=== PATIENT | female | born 1995 | race Caucasian/White ===

== ENCOUNTER 2016-06-30 14:47 | Emergency (ER) | payer MEDICAID ==
[~2016-06-30] VITALS: Ht 149.9 cm; Wt 67.3 kg
[~2016-06-30 14:47] MED LIST: ABILIFY5 MG PO; ADDERALL5 MG PO; CEFTIN 250250 MG/TAB PO; DESYREL 50MG50 MG PO; IMPLANON68 MG ID; LEVAQUIN 5500 MG/TA1 PO; MINIPRESS 5M5 MG/CAP PO; NO HOME MEDICATIONS; NORCO 325 MG-51 TAB PO; PERIACTIN 4MG TA4 MG PO; PROZAC 20MG20 MG PO; RISPERDAL 0.5M0.5 MG PO; RISPERDAL2 MG PO; VISTARIL50 MG PO; WELLBUTRIN SR100 M1 PO; WELLBUTRIN XL300 M1 PO; ZOFRAN 4MG T4 MG/TAB PO; ZOLOFT 50MG50 MG PO; ZYPREXA10 MG PO
[2016-06-30 14:48] VITALS: TEMP 97
[2016-06-30 15:32] LABS: BASO % 0.4 % (0.0-2.0); EOS # 0.1 (0.0-0.7); EOS % 1.9 % (0-4.0); GRAN # 3.9 (1.4-6.5); GRAN % 55.2 % (42.2-75.2); HEMATOCRIT 38.1 % (35.0-45.0); HEMOGLOBIN 12.7 g/dl (12.0-15.0); LYMPH # 2.5 (1.2-3.4); LYMPH % 35.5 % (20.0-51.0); MEAN CELL VOLUME 90 fl (80.0-95.0); MEAN CORPUSCULAR HEMOGLOBIN 30 pg (26.0-32.0); MEAN CORPUSCULAR HGB CONC 33 g/dl (33.0-37.0); MEAN PLATELET VOLUME 10.5 fl (7.4-10.4); MONO # 0.5 (0.1-0.6); PLATELET COUNT 294 K/mm3 (130-400); RED BLOOD COUNT 4.22 M/mm3 (4.10-5.30); REDCELL DISTRIBUTION WIDTH-CV 12.8 % (11.5-14.5)
[2016-06-30 15:41] LABS: ADJUSTED CALCIUM 9.2 mg/dL (8.4-10.2); ALANINE AMINOTRANSFERASE 22 U/L (9-52); ALBUMIN 3.8 gm/dL (3.5-5.0); ALKALINE PHOSPHATASE 69 U/L (50-136); ANION GAP 8 mmol/L (7-16); BILIRUBIN,TOTAL 0.5 mg/dL (0.0-1.0); BLOOD UREA NITROGEN 8 mg/dL (7-17); CARBON DIOXIDE 27 mmol/L (22-30); CHLORIDE 106 mmol/L (98-107); CREATININE, serum 0.74 mg/dL (0.52-1.25); GLUCOSE 104 mg/dL (74-106); LIPASE 190 U/L (23-300); POTASSIUM 3.9 mmol/L (3.4-5.0); SODIUM 141 mmol/L (137-145)
[2016-06-30 15:43] LABS: C-REACTIVE PROTEIN < 0.5 mg/dL (0.0-0.9)
[2016-06-30 17:18] LABS: PH 6 (5-8); URINE APPEARANCE Hazy; URINE BACTERIA Rare /hpf; URINE BILIRUBIN Negative (NEGATIVE); URINE BLOOD Negative (NEGATIVE); URINE COLOR Yellow; URINE GLUCOSE Negative (NEGATIVE); URINE KETONE Negative (NEGATIVE); URINE UROBILINOGEN Negative (NEGATIVE)
[2016-06-30] MEDS ORDERED: DOXYCYCLINE 10100 MG PO (18:17)
[2016-06-30] MEDS ORDERED: PHENERGAN 25 TA25 MG PO (18:17)
[2016-06-30 18:28] VITALS: BP 116/85; PULSE 75
[2016-07-03] MEDS ORDERED: AMOXICILLIN 50500 MG PO (04:30)
== END 2016-06-30 18:29 | disposition home or self-care (01) ==
LOC: COL.ER 14:47
PROVIDERS: Emergency Medicine
DX: R10.84 Generalized abdominal pain (principal); L03.116 Cellulitis of left lower limb; R19.7 Diarrhea, unspecified; R11.2 Nausea with vomiting, unspecified
CPT/HCPCS: J1170; J1885; J2405; J7030

== ENCOUNTER 2016-09-13 05:00 | Emergency (ER) | payer MEDICAID ==
[~2016-09-13] VITALS: Ht 149.9 cm; Wt 57.7 kg
[~2016-09-13 05:00] MED LIST changes: +AMOXICILLIN 50500 MG PO; +DOXYCYCLINE 10100 MG PO; +PHENERGAN 25 TA25 MG PO
[2016-09-13 05:06] VITALS: TEMP 97.8
[2016-09-13 05:55] LABS: BASO # 0.1 (0.0-0.2); BASO % 0.6 % (0.0-2.0); EOS # 0.2 (0.0-0.7); EOS % 1.8 % (0-4.0); GRAN # 3.5 (1.4-6.5); GRAN % 41.6 % (42.2-75.2); HEMOGLOBIN 12.9 g/dl (12.0-15.0); LYMPH # 3.7 (1.2-3.4); MEAN CELL VOLUME 88 fl (80.0-95.0); MEAN CORPUSCULAR HEMOGLOBIN 31 pg (26.0-32.0); MEAN CORPUSCULAR HGB CONC 35 g/dl (33.0-37.0); MEAN PLATELET VOLUME 10.9 fl (7.4-10.4); MONO % 11.9 % (1.7-9.3); PLATELET COUNT 284 K/mm3 (130-400); RED BLOOD COUNT 4.19 M/mm3 (4.10-5.30); REDCELL DISTRIBUTION WIDTH-CV 13.2 % (11.5-14.5); WHITE BLOOD COUNT 8.3 K/mm3 (4.8-10.8)
[2016-09-13 06:09] LABS: ALBUMIN 4.5 gm/dL (3.5-5.0); BILIRUBIN,TOTAL 0.5 mg/dL (0.0-1.0); CALCIUM 9.4 mg/dL (8.4-10.2); CREATININE, serum 0.71 mg/dL (0.52-1.25); POTASSIUM 3.6 mmol/L (3.4-5.0); TOTAL PROTEIN 7.8 gm/dL (6.4-8.2)
[2016-09-13] MEDS ORDERED: ULTRAM 50MG TAB50 MG PO (06:35)
[2016-09-13] MEDS ORDERED: ZOFRAN8 MG PO (06:35)
[2016-09-13] MEDS ORDERED: MACROBID 1100 MG/CAP PO (06:46)
[2016-09-13 06:59] VITALS: BP 126/92; PULSE 90
[2016-09-13 07:10] LABS: PH 6 (5-8); SQUAMOUS EPITHELIAL 0-2 /hpf; URINE APPEARANCE Hazy; URINE BACTERIA Rare /hpf; URINE BILIRUBIN Negative (NEGATIVE); URINE BLOOD Negative (NEGATIVE); URINE COLOR Yellow; URINE GLUCOSE Negative (NEGATIVE); URINE KETONE Negative (NEGATIVE); URINE UROBILINOGEN Negative (NEGATIVE); URINE WBC 20-50 /hpf
== END 2016-09-13 07:21 | disposition home or self-care (01) ==
LOC: COL.ER 05:00
PROVIDERS: Emergency Medicine
DX: N39.0 Urinary tract infection, site not specified (principal); F32.9 Major depressive disorder, single episode, unspecified; F20.9 Schizophrenia, unspecified; F41.9 Anxiety disorder, unspecified
CPT/HCPCS: J1170; J1885; J2405; J2765; J7030

== ENCOUNTER 2017-01-23 12:26 | Emergency (ER) | payer MEDICAID ==
[~2017-01-23] VITALS: Ht 149.9 cm; Wt 59.1 kg
[~2017-01-23 12:26] MED LIST changes: +MACROBID 1100 MG/CAP PO; +ULTRAM 50MG TAB50 MG PO; +ZOFRAN8 MG PO
[2017-01-23 12:38] VITALS: BP 122/73; PULSE 99; TEMP 97.8
== END 2017-01-23 14:49 | disposition left against medical advice (07) ==
LOC: COL.ER 12:26
DX: M25.552 Pain in left hip (principal); M25.551 Pain in right hip; R10.12 Left upper quadrant pain

== ENCOUNTER → 2017-02-26 | Outpatient (CLI) | payer MEDICAID ==
[2017-02-26 21:30] VITALS: BP 127/76; PULSE 95; TEMP 97.7
[2017-02-26 22:07] LABS: AMPHETAMINE URINE POSITIVE; BARBITURATES URINE NEGATIVE; BENZODIAZEPINES URINE NEGATIVE; BUPRENORPHINE URINE NEGATIVE; METHADONE URINE NEGATIVE; OPIATES URINE NEGATIVE; OXYCODONE URINE NEGATIVE; PHENCYCLIDINE URINE NEGATIVE; PROPOXYPHENE URINE NEGATIVE; THC CANNABINOIDS URINE NEGATIVE; TRICYCLIC ANTIDEPRESS URINE NEGATIVE
== END ==
LOC: LDRO 21:01
PROVIDERS: Obstetrics & Gynecology
DX: O99.612 Diseases of the digestive system complicating pregnancy, second trimester (principal); Z3A.26 26 weeks gestation of pregnancy

== ENCOUNTER 2017-04-28 12:59 | Emergency (ER) | payer MEDICAID ==
[~2017-04-28] VITALS: Ht 149.9 cm; Wt 58.2 kg
[2017-04-28 13:04] VITALS: BP 120/69; TEMP 98
[2017-04-28 14:34] LABS: BASO % 0.3 % (0.0-2.0); EOS # 0.1 (0.0-0.7); EOS % 0.8 % (0-4.0); GRAN # 6.6 (1.4-6.5); GRAN % 83.7 % (42.2-75.2); HEMATOCRIT 39.6 % (37.0-47.0); HEMOGLOBIN 13.3 g/dl (12.5-16.0); LYMPH # 0.8 (1.2-3.4); LYMPH % 9.8 % (20.0-51.0); MEAN CELL VOLUME 91 fl (80.0-100.0); MEAN CORPUSCULAR HEMOGLOBIN 31 pg (27.0-31.0); MEAN CORPUSCULAR HGB CONC 34 g/dl (33.0-37.0); MEAN PLATELET VOLUME 10.5 fl (7.4-10.4); MONO # 0.4 (0.1-0.6); MONO % 5.3 % (1.7-9.3); PLATELET COUNT 261 K/mm3 (130-400); RED BLOOD COUNT 4.34 M/mm3 (4.10-5.30); WHITE BLOOD COUNT 7.9 K/mm3 (4.8-10.8)
[2017-04-28 14:40] LABS: COLLECTION METHOD CLEAN CATCH
[2017-04-28 14:43] LABS: ADJUSTED CALCIUM 8.8 mg/dL (8.4-10.2); ALBUMIN 4.5 gm/dL (3.5-5.0); BILIRUBIN,TOTAL 0.8 mg/dL (0.0-1.0); C-REACTIVE PROTEIN 1.7 mg/dL (0.0-0.9); CALCIUM 9.2 mg/dL (8.4-10.2); CREATININE, serum 0.67 mg/dL (0.52-1.25); TOTAL PROTEIN 7.6 gm/dL (6.4-8.2)
[2017-04-28 14:50] LABS: MUCOUS Present /lpf; PH 6 (5-8); URINE APPEARANCE Clear; URINE BACTERIA Rare /hpf; URINE BILIRUBIN Negative (NEGATIVE); URINE BLOOD Negative (NEGATIVE); URINE COLOR Yellow; URINE GLUCOSE Negative (NEGATIVE); URINE KETONE Negative (NEGATIVE); URINE LEUKOCYTE ESTERASE Negative (NEGATIVE); URINE PROTEIN(semi-quant) Negative (NEGATIVE); URINE UROBILINOGEN Negative (NEGATIVE)
[2017-04-28] MEDS ORDERED: ZOFRAN 4MG T4 MG/TAB PO (17:04)
[2017-04-28 17:40] VITALS: PULSE 68
== END 2017-04-28 17:41 | disposition home or self-care (01) ==
LOC: COL.ER 12:59
PROVIDERS: Physician Assistant
DX: R11.10 Vomiting, unspecified (principal); F31.9 Bipolar disorder, unspecified; F41.9 Anxiety disorder, unspecified; F17.210 Nicotine dependence, cigarettes, uncomplicated; Z91.410 Personal history of adult physical and sexual abuse; Z87.440 Personal history of urinary (tract) infections; Z87.442 Personal history of urinary calculi
CPT/HCPCS: J1885; J2405; J7030; Q9967

== ENCOUNTER 2017-06-14 18:38 | Emergency (ER) | payer MEDICAID ==
[~2017-06-14] VITALS: Ht 165.1 cm; Wt 54.5 kg
[2017-06-14 18:46] VITALS: TEMP 98.6
[2017-06-14 19:05] LABS: BASO % 0.5 % (0.0-2.0); EOS # 0.1 (0.0-0.7); EOS % 2.4 % (0-4.0); GRAN # 2.5 (1.4-6.5); GRAN % 42.4 % (42.2-75.2); LYMPH # 2.4 (1.2-3.4); LYMPH % 40.5 % (20.0-51.0); MEAN CELL VOLUME 90 fl (80.0-100.0); MEAN CORPUSCULAR HGB CONC 34 g/dl (33.0-37.0); MEAN PLATELET VOLUME 10.5 fl (7.4-10.4); MONO # 0.8 (0.1-0.6); PLATELET COUNT 293 K/mm3 (130-400); RED BLOOD COUNT 3.89 M/mm3 (4.10-5.30); REDCELL DISTRIBUTION WIDTH-CV 13.2 % (11.5-14.5)
[2017-06-14 19:11] LABS: HEMATOCRIT 34.9 % (37.0-47.0); HEMOGLOBIN 11.9 g/dl (12.5-16.0); MEAN CORPUSCULAR HEMOGLOBIN 31 pg (27.0-31.0)
[2017-06-14 19:18] LABS: ALANINE AMINOTRANSFERASE 25 U/L (9-52); ALBUMIN 4.1 gm/dL (3.5-5.0); ALKALINE PHOSPHATASE 62 U/L (50-136); ANION GAP 8 mmol/L (7-16); AST,SGOT 33 U/L (15-37); BILIRUBIN,TOTAL 0.3 mg/dL (0.0-1.0); BLOOD UREA NITROGEN 15 mg/dL (7-17); CALCIUM 9.2 mg/dL (8.4-10.2); CARBON DIOXIDE 23 mmol/L (22-30); CHLORIDE 106 mmol/L (98-107); CREATININE, serum 0.64 mg/dL (0.52-1.25); GLUCOSE 115 mg/dL (74-106); POTASSIUM 3.9 mmol/L (3.4-5.0); SODIUM 138 mmol/L (137-145); TOTAL PROTEIN 7.2 gm/dL (6.4-8.2)
[2017-06-14 19:19] LABS: ALCOHOL(ethanol),MEDICAL < 10 mg/dL
[2017-06-14 19:34] LABS: PROLACTIN 35.2 ng/mL (3.0-18.6)
[2017-06-14 19:36] LABS: COLLECTION METHOD CLEAN CATCH
[2017-06-14 19:43] LABS: MUCOUS Present /lpf; PH 6 (5-8); URINE APPEARANCE Hazy; URINE BACTERIA Many /hpf; URINE BILIRUBIN Negative (NEGATIVE); URINE BLOOD 2+ (NEGATIVE); URINE COLOR Yellow; URINE GLUCOSE Negative (NEGATIVE); URINE KETONE Negative (NEGATIVE); URINE LEUKOCYTE ESTERASE Trace (NEGATIVE); URINE NITRATE Positive (NEGATIVE); URINE PROTEIN(semi-quant) Negative (NEGATIVE)
[2017-06-14 19:51] LABS: TRICYCLIC ANTIDEPRESS URINE NEGATIVE
[2017-06-14] MEDS ORDERED: CEPHALEXIN500 M1 PO (19:55)
[2017-06-14] MEDS ORDERED: IBU400 MG PO (19:56)
[2017-06-14 20:44] VITALS: BP 129/80; PULSE 81
== END 2017-06-14 20:44 | disposition home or self-care (01) ==
LOC: COL.ER 18:38
PROVIDERS: Emergency Medicine
DX: N39.0 Urinary tract infection, site not specified (principal); F15.10 Other stimulant abuse, uncomplicated; R56.9 Unspecified convulsions; F41.9 Anxiety disorder, unspecified; F32.9 Major depressive disorder, single episode, unspecified
CPT/HCPCS: J0696; J1885; J2405

== ENCOUNTER 2017-07-18 07:46 | Emergency (ER) | payer SELFPAY ==
[~2017-07-18] VITALS: Ht 160 cm; Wt 54.5 kg
[~2017-07-18 07:46] MED LIST changes: +CEPHALEXIN500 M1 PO; +IBU400 MG PO
[2017-07-18 07:49] VITALS: TEMP 96.8
[2017-07-18 08:07] LABS: BASO % 0.5 % (0.0-2.0); EOS # 0.2 (0.0-0.7); EOS % 2.4 % (0-4.0); GRAN # 3.5 (1.4-6.5); GRAN % 44.4 % (42.2-75.2); HEMATOCRIT 37.4 % (37.0-47.0); HEMOGLOBIN 12.8 g/dl (12.5-16.0); LYMPH # 3.3 (1.2-3.4); LYMPH % 41.1 % (20.0-51.0); MEAN CELL VOLUME 88 fl (80.0-100.0); MEAN CORPUSCULAR HEMOGLOBIN 30 pg (27.0-31.0); MEAN CORPUSCULAR HGB CONC 34 g/dl (33.0-37.0); MEAN PLATELET VOLUME 9.9 fl (7.4-10.4); MONO # 0.9 (0.1-0.6); MONO % 11.5 % (1.7-9.3); PLATELET COUNT 326 K/mm3 (130-400); RED BLOOD COUNT 4.23 M/mm3 (4.10-5.30)
[2017-07-18 08:21] LABS: ALANINE AMINOTRANSFERASE 23 U/L (9-52); ALBUMIN 4.4 gm/dL (3.5-5.0); ALKALINE PHOSPHATASE 62 U/L (50-136); ANION GAP 13 mmol/L (7-16); AST,SGOT 27 U/L (15-37); BILIRUBIN,TOTAL 0.3 mg/dL (0.0-1.0); BLOOD UREA NITROGEN 11 mg/dL (7-17); CARBON DIOXIDE 25 mmol/L (22-30); CHLORIDE 105 mmol/L (98-107); CREATININE, serum 0.67 mg/dL (0.52-1.25); GLUCOSE 110 mg/dL (74-106); POTASSIUM 3.8 mmol/L (3.4-5.0); SODIUM 143 mmol/L (137-145); TOTAL PROTEIN 7.6 gm/dL (6.4-8.2)
[2017-07-18 08:23] LABS: COLLECTION METHOD CLEAN CATCH
[2017-07-18 08:24] LABS: C-REACTIVE PROTEIN < 0.5 mg/dL (0.0-0.9)
[2017-07-18 08:31] LABS: MUCOUS Present /lpf; PH 7 (5-8); URINE APPEARANCE Hazy; URINE BACTERIA Rare /hpf; URINE BILIRUBIN Negative (NEGATIVE); URINE BLOOD 1+ (NEGATIVE); URINE COLOR Yellow; URINE GLUCOSE Negative (NEGATIVE); URINE KETONE Negative (NEGATIVE); URINE LEUKOCYTE ESTERASE Trace (NEGATIVE); URINE NITRATE Positive (NEGATIVE); URINE PROTEIN(semi-quant) Negative (NEGATIVE); URINE UROBILINOGEN Negative (NEGATIVE)
[2017-07-18 08:35] LABS: PROLACTIN 37.3 ng/mL (3.0-18.6)
[2017-07-18 09:02] LABS: TRICYCLIC ANTIDEPRESS URINE NEGATIVE
[2017-07-18] MEDS ORDERED: BACTRIM DS 8001 TAB PO (10:08)
[2017-07-18 10:40] VITALS: BP 114/86; PULSE 86
== END 2017-07-18 10:41 | disposition home or self-care (01) ==
LOC: COL.ER 07:46
PROVIDERS: Nurse Practitioner
DX: F15.10 Other stimulant abuse, uncomplicated (principal); N39.0 Urinary tract infection, site not specified; F31.9 Bipolar disorder, unspecified; F41.9 Anxiety disorder, unspecified; F43.10 Post-traumatic stress disorder, unspecified; F17.210 Nicotine dependence, cigarettes, uncomplicated
CPT/HCPCS: J2060

== ENCOUNTER 2018-06-19 20:44 | Emergency (ER) | payer SELFPAY ==
[~2018-06-19] VITALS: Ht 149.9 cm; Wt 59.1 kg
[~2018-06-19 20:44] MED LIST changes: +BACTRIM DS 8001 TAB PO
[2018-06-19 20:45] VITALS: TEMP 98.1
[2018-06-19] MEDS ORDERED: MINIPRESS 1M1 MG/CAP (20:48)
[2018-06-19] MEDS ORDERED: ZOLOFT 50MG50 MG PO (20:48)
[2018-06-19 21:25] LABS: BASO % 0.3 % (0.0-2.0); EOS # 0.1 (0.0-0.7); EOS % 0.9 % (0-4.0); GRAN # 7.8 (1.4-6.5); HEMOGLOBIN 11.9 g/dl (12.5-16.0); LYMPH # 2.7 (1.2-3.4); LYMPH % 23.1 % (20.0-51.0); MEAN CELL VOLUME 93 fl (80.0-100.0); MEAN CORPUSCULAR HEMOGLOBIN 31 pg (27.0-31.0); MEAN CORPUSCULAR HGB CONC 33 g/dl (33.0-37.0); MEAN PLATELET VOLUME 10.4 fl (7.4-10.4); MONO % 8.3 % (1.7-9.3); PLATELET COUNT 275 K/mm3 (130-400); RED BLOOD COUNT 3.89 M/mm3 (4.10-5.30); REDCELL DISTRIBUTION WIDTH-CV 13.8 % (11.5-14.5)
[2018-06-19 21:35] LABS: ALBUMIN 3.9 gm/dL (3.5-5.0); BILIRUBIN,TOTAL 0.4 mg/dL (0.0-1.0); CALCIUM 8.8 mg/dL (8.4-10.2); CREATININE, serum 0.68 mg/dL (0.52-1.25); POTASSIUM 4.2 mmol/L (3.4-5.0); TOTAL PROTEIN 7.3 gm/dL (6.4-8.2)
[2018-06-19 21:51] LABS: PROLACTIN 16.7 ng/mL (3.0-18.6)
[2018-06-19] MEDS ORDERED: ATIVAN 0.50.5 MG/TAB PO (21:56)
[2018-06-19 22:31] VITALS: BP 131/82; PULSE 78
== END 2018-06-19 22:39 | disposition home or self-care (01) ==
LOC: COL.ER 20:44
PROVIDERS: Emergency Medicine
DX: R56.9 Unspecified convulsions (principal); F17.210 Nicotine dependence, cigarettes, uncomplicated
CPT/HCPCS: J1885; J2060; J7030

== ENCOUNTER 2018-06-29 09:14 | Emergency (ER) | payer SELFPAY ==
[~2018-06-29] VITALS: Ht 149.9 cm; Wt 62.7 kg
[~2018-06-29 09:14] MED LIST changes: +ATIVAN 0.50.5 MG/TAB PO; +MINIPRESS 1M1 MG/CAP
[2018-06-29 09:23] VITALS: TEMP 98.6
[2018-06-29] MEDS ORDERED: DEPAKOTE500 MG PO (09:39)
[2018-06-29] MEDS ORDERED: ADVIL200 MG PO (09:39)
[2018-06-29 09:46] LABS: BASO % 0.4 % (0.0-2.0); EOS # 0.1 (0.0-0.7); EOS % 0.9 % (0-4.0); GRAN # 4.4 (1.4-6.5); GRAN % 62.4 % (42.2-75.2); HEMATOCRIT 38.4 % (37.0-47.0); HEMOGLOBIN 12.6 g/dl (12.5-16.0); LYMPH # 1.9 (1.2-3.4); LYMPH % 27.4 % (20.0-51.0); MEAN CELL VOLUME 93 fl (80.0-100.0); MEAN CORPUSCULAR HEMOGLOBIN 31 pg (27.0-31.0); MEAN CORPUSCULAR HGB CONC 33 g/dl (33.0-37.0); MONO # 0.6 (0.1-0.6); MONO % 8.6 % (1.7-9.3); PLATELET COUNT 341 K/mm3 (130-400); RED BLOOD COUNT 4.13 M/mm3 (4.10-5.30); REDCELL DISTRIBUTION WIDTH-CV 13.5 % (11.5-14.5)
[2018-06-29 10:00] LABS: ALBUMIN 3.9 gm/dL (3.5-5.0); BILIRUBIN,TOTAL 0.3 mg/dL (0.0-1.0); CALCIUM 9.3 mg/dL (8.4-10.2); CREATININE, serum 0.95 mg/dL (0.52-1.25); POTASSIUM 4.3 mmol/L (3.4-5.0); TOTAL PROTEIN 7.4 gm/dL (6.4-8.2)
[2018-06-29 10:16] LABS: PROLACTIN 26.5 ng/mL (3.0-18.6)
[2018-06-29 10:58] LABS: VALPROIC ACID (DEPAKENE) 104.1 ug/mL (50.0-100.0)
[2018-06-29 11:26] LABS: COLLECTION METHOD CLEAN CATCH
[2018-06-29 11:33] LABS: MUCOUS Present /lpf; PH 6 (5-8); SQUAMOUS EPITHELIAL 0-2 /hpf; URINE APPEARANCE Hazy; URINE BACTERIA Moderate /hpf; URINE BILIRUBIN Negative (NEGATIVE); URINE BLOOD Negative (NEGATIVE); URINE COLOR Yellow; URINE GLUCOSE Negative (NEGATIVE); URINE KETONE Trace (NEGATIVE); URINE LEUKOCYTE ESTERASE Negative (NEGATIVE); URINE NITRATE Positive (NEGATIVE); URINE PROTEIN(semi-quant) Negative (NEGATIVE); URINE UROBILINOGEN Negative (NEGATIVE)
[2018-06-29 11:45] LABS: TRICYCLIC ANTIDEPRESS URINE NEGATIVE
[2018-06-29] MEDS ORDERED: CEPHALEXIN500 M1 PO (12:03)
[2018-06-29] MEDS ORDERED: KEPPRA 500MG500 MG PO (12:03)
[2018-06-29 12:25] VITALS: BP 122/80; PULSE 88
== END 2018-06-29 12:27 | disposition home or self-care (01) ==
LOC: COL.ER 09:14
PROVIDERS: Emergency Medicine
DX: R56.9 Unspecified convulsions (principal); F43.10 Post-traumatic stress disorder, unspecified; F17.210 Nicotine dependence, cigarettes, uncomplicated; N39.0 Urinary tract infection, site not specified
CPT/HCPCS: A4216; J0696; J1953; J2060

== ENCOUNTER → 2018-11-22 | Outpatient (CLI) | payer SELFPAY ==
[~2018-11-22] MED LIST changes: +ADVIL200 MG PO; +DEPAKOTE500 MG PO; +KEPPRA 500MG500 MG PO
[2018-11-22 16:57] LABS: HEMATOCRIT 41.1 % (37.0-47.0); HEMOGLOBIN 13.8 g/dl (12.5-16.0); MEAN CELL VOLUME 91 fl (80.0-100.0); MEAN CORPUSCULAR HEMOGLOBIN 31 pg (27.0-31.0); MEAN CORPUSCULAR HGB CONC 34 g/dl (33.0-37.0); MEAN PLATELET VOLUME 10.4 fl (7.4-10.4); PLATELET COUNT 290 K/mm3 (130-400); RED BLOOD COUNT 4.52 M/mm3 (4.10-5.30); REDCELL DISTRIBUTION WIDTH-CV 12.8 % (11.5-14.5)
[2018-11-22 17:37] LABS: ALBUMIN 4.7 gm/dL (3.5-5.0); BILIRUBIN UNCONJUGATED 0.2 mg/dL (0.0-1.1); BILIRUBIN,DIRECT 0.2 mg/dL (0.0-0.4); BILIRUBIN,TOTAL 0.4 mg/dL (0.0-1.0); TOTAL PROTEIN 8.5 gm/dL (6.4-8.2)
[2018-11-22 18:09] LABS: HIV 1/2 Antibodies Non-Reactive; HIV-1p24 Antigen Non-Reactive
== END ==
LOC: COL.LAB 16:21
PROVIDERS: Physician Assistant
DX: D64.9 Anemia, unspecified (principal); Z72.89 Other problems related to lifestyle

== ENCOUNTER 2020-06-12 11:59 | Emergency (ER) | payer MEDICAID ==
[~2020-06-12] VITALS: Ht 121.9 cm; Wt 67.3 kg
[2020-06-12 12:10] VITALS: TEMP 97.5
[2020-06-12] MEDS ORDERED: NORCO 325 MG-51 TAB PO ×3 (12:41→13:22)
[2020-06-12 13:30] VITALS: BP 150/98; PULSE 89
== END 2020-06-12 13:30 | disposition home or self-care (01) ==
LOC: COL.ER 11:59
DX: S62.245A Nondisplaced fracture of shaft of first metacarpal bone, left hand, initial encounter for closed fracture (principal); S60.512A Abrasion of left hand, initial encounter; S60.511A Abrasion of right hand, initial encounter; W23.1XXA Caught, crushed, jammed, or pinched between stationary objects, initial encounter; Y99.0 Civilian activity done for income or pay

== ENCOUNTER 2020-07-13 14:43 | Emergency (ER) | payer MEDICAID ==
[~2020-07-13] VITALS: Ht 152.4 cm; Wt 54.5 kg
[2020-07-13 15:06] VITALS: TEMP 99
[2020-07-13 15:19] LABS: COLLECTION METHOD CLEAN CATCH
[2020-07-13 15:32] LABS: MUCOUS Present /lpf; PH 8 (5-8); URINE APPEARANCE Hazy; URINE BACTERIA Rare /hpf; URINE BILIRUBIN Negative (NEGATIVE); URINE BLOOD 1+ (NEGATIVE); URINE COLOR Yellow; URINE GLUCOSE Negative (NEGATIVE); URINE KETONE Negative (NEGATIVE); URINE LEUKOCYTE ESTERASE Trace (NEGATIVE); URINE NITRATE Negative (NEGATIVE); URINE PROTEIN(semi-quant) Negative (NEGATIVE); URINE UROBILINOGEN Negative (NEGATIVE)
[2020-07-13 16:08] LABS: HEMATOCRIT 42.5 % (37.0-47.0); HEMOGLOBIN 14.3 g/dl (12.5-16.0); MEAN CELL VOLUME 90 fl (80.0-100.0); MEAN CORPUSCULAR HEMOGLOBIN 30 pg (27.0-31.0); MEAN CORPUSCULAR HGB CONC 34 g/dl (33.0-37.0); MEAN PLATELET VOLUME 9.4 fl (7.4-10.4); PLATELET COUNT 276 K/mm3 (130-400); RED BLOOD COUNT 4.72 M/mm3 (4.10-5.30); REDCELL DISTRIBUTION WIDTH-CV 14.9 % (11.5-14.5)
[2020-07-13 16:20] LABS: BILIRUBIN,TOTAL 0.9 mg/dL (0.0-1.0); C-REACTIVE PROTEIN 5.8 mg/dL (0.0-0.9); CREATININE, serum 0.65 (0.52-1.25); POTASSIUM 3.9 mmol/L (3.4-5.0); TOTAL PROTEIN 7.4 gm/dL (6.4-8.2)
[2020-07-13 16:48] LABS: BAND 1 % (0-10); EOSINOPHIL 1 % (0-4); LYMPHOCYTE 15 % (20.0-51.0); NEUTROPHILS 78 % (42.0-75.2)
[2020-07-13 16:50] LABS: PLATELET ESTIMATE NORMAL (NORMAL)
[2020-07-13] MEDS ORDERED: OMNICEF 300MG300 MG PO (17:14)
[2020-07-13 17:21] VITALS: BP 121/76; PULSE 75
[2020-07-15] MEDS ORDERED: MACROBID 1100 MG/CAP PO (12:29)
== END 2020-07-13 17:21 | disposition home or self-care (01) ==
LOC: COL.ER 14:43
PROVIDERS: Emergency Medicine; Nurse Practitioner Primary Care
DX: N12 Tubulo-interstitial nephritis, not specified as acute or chronic (principal); F32.9 Major depressive disorder, single episode, unspecified; F17.210 Nicotine dependence, cigarettes, uncomplicated; Z87.442 Personal history of urinary calculi
CPT/HCPCS: J0696; J1885; J2405; J7030